=== PATIENT | male | born 1995 | race African-American/Black ===

== ENCOUNTER 2018-08-27 19:39 | Emergency (ER) | payer OTHER ==
[2018-08-27] MEDS ORDERED: BUFFERED LIDOCAINE 10 ML SYRINGE SUBQ STA (20:20)
[2018-08-27] MEDS ORDERED: SULFAM/TRIM 800/160 Prepack 2 PO ONE (21:03)
[2018-08-27] MEDS ORDERED: HYDROcod/ACET 5/325 Prepack 4 PO STA (21:04)
--- NOTE | 2018-08-27 21:06 | ED Physician Documentation ---
PD HPI SKIN - Stated complaint Stated Complaint: TAILBONE PX - Chief complaint Chief Complaint: Wound - History obtained from History obtained from: Patient, Family - History of Present Illness Timing - onset: How many weeks ago (1) Timing - duration: Weeks (1) Timing - details: Gradual onset, Still present Location: Other (end of the tailbone) Quality / character: Painful, Swelling Associated symptoms: No: Fever, N/V/D Contributing factors: Other (has pilonidal cyst) Similar symptoms before: Diagnosis (pilonidal cyst) Recently seen: Not recently seen - Additional information Additional information: 22-year-old male with a history of pilonidal cyst has developed symptoms with swelling and pain at the end of his tailbone that progressed over the past week. He has severe pain now and is uncomfortable even laying on his stomach. He has not had any drainage from the area, he has not had a fever or chills or myalgias. Review of Systems Constitutional: denies: Fever, Chills, Myalgias Respiratory: denies: Dyspnea GI: denies: Abdominal Pain, Nausea, Vomiting Skin: reports: Other (abscess to the tailbone) Musculoskeletal: denies: Neck pain Neurologic: denies: Generalized weakness, Focal weakness, Numbness PD PAST MEDICAL HISTORY - Past Medical History Past Medical History: No - Past Surgical History Past Surgical History: No - Present Medications Home Medications: Ambulatory Orders Medication Instructions Recorded Confirmed Bupropion HCl [Bupropion Xl] 1 tab PO DAILY 08/27/18 08/27/18 Sulfamethoxazole/Trimethoprim 1 each PO BID #14 tablet 08/27/18 [Sulfamethoxazole-Tmp Ds Tablet] - Allergies Allergies/Adverse Reactions: Allergies Allergy/AdvReac Type Severity Reaction Status Date / Time No Known Drug Allergies Allergy Verified 08/27/18 19:44 - Social History Does the pt smoke?: No Smoking Status: Never smoker Does the pt drink ETOH?: Yes Does the pt have substance abuse?: No - Immunizations Immunizations are current?: Yes - POLST Patient has POLST: No PD ED PE NORMAL - Vitals Vital signs reviewed: Yes (normal ) - General General: Alert and oriented X 3, No acute distress, Well developed/nourished - HEENT HEENT: Atraumatic, PERRL, EOMI - Respiratory Respiratory: No respiratory distress - Rectal Rectal: Other (At the upper end of the tailbone there is a swollen tender area without fluctuance. There is no surrounding erythema ) - Derm Derm: Normal color, Warm and dry, No rash - Extremities Extremities: No deformity, No tenderness to palpate, Normal ROM s pain, No edema, No calf tenderness / cord - Neuro Neuro: Alert and oriented X 3 Eye Opening: Spontaneous Motor: Obeys Commands Verbal: Oriented GCS Score: 15 - Psych Psych: Normal mood, Normal affect Results - Vitals Vitals: Vital Signs - 24 hr 08/27/18 19:42 Temperature 37.3 C Heart Rate 82 Respiratory 18 Rate Blood Pressure 128/71 O2 Saturation 99 Oxygen O2 Source Room air Procedures - Abscess I&D (location) tailbone Preparation: Confirmed with ultrasound, Chlorhexadine, Lidocaine 1% Incision: Incised with scalpel, Purulent drainage, Loculations broken, Irrigated, Packed, Culture obtained Other: Pt tolerated well, Dressing applied, Antibiotic prescribed PD MEDICAL DECISION MAKING - ED course Complexity details: considered differential, d/w patient, d/w family ED course: 22-year-old male with a history of pilonidal cyst has had a eruption is pile of his pilonidal cyst and now has a lot of pain and swelling associated with this the area is firm to touch and pus is detected with use of bedside ultrasound deep to the surface. The abscess is drained and cultures obtained and the abscess is packed with 7 1/2 cm of quarter inch packing. The procedure was painful to the patient and he had improvement in his pain at the conclusion of the procedure. Departure - Departure Disposition: 01 Home, Self Care Clinical Impression: Pilonidal cyst with abscess Condition: Stable Instructions: ED Cyst Pilonidal Infected IandD Follow-Up: [facility] [Provider Group] Prescriptions: Sulfamethoxazole/Trimethoprim [Sulfamethoxazole-Tmp Ds Tablet] 1 each PO BID #14 tablet Comments: Your packing will need to be removed over the next 2-5 days. Follow up with your primary in 2 days for exam. Forms: Activity restrictions
[2018-08-27 21:48] VITALS: BP 118/57
== END 2018-08-27 21:48 | disposition home or self-care (01) ==
LOC: ED 19:39
DX: L05.01 Pilonidal cyst with abscess (principal)
CPT/HCPCS: 10080; 87070; 87205; 99282; 99283

== ENCOUNTER 2019-01-24 09:25 | Emergency (ER) | payer OTHER ==
[2019-01-24 10:28] VITALS: BP 108/72
[2019-01-24] MEDS ORDERED: IBUPROFEN 800 MG TABLET PO STA (11:24)
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
== END 2019-01-24 11:36 | disposition home or self-care (01) ==
LOC: ED 09:25
DX: S39.012A Strain of muscle, fascia and tendon of lower back, initial encounter (principal); V89.2XXA Person injured in unspecified motor-vehicle accident, traffic, initial encounter
CPT/HCPCS: 99282; 99283

== ENCOUNTER 2019-03-21 08:32 | Emergency (ER) | payer OTHER ==
[2019-03-21 08:38] VITALS: BP 108/77
[2019-03-21] MEDS ORDERED: cephALEXin 250 MG CAPSULE PO STA (08:52)
[2019-03-21] MEDS ORDERED: SULFAMETH/TRIMETH DS 800/160 MG TABLET PO STA (08:52)
--- NOTE | 2019-03-21 08:57 | ED Physician Documentation ---
History of Present Illness - Stated complaint Stated Complaint: LOWER BACK PAIN - Chief complaint Chief Complaint: Wound - History obtained from History obtained from: Patient - History of Present Illness Timing: How many days ago (several) Pain level max: 4 Pain level now: 3 - Additonal information Additional information: 23-year-old male with a pilonidal cyst and abscess. This is spontaneously draining. This is the third time this is happened to him. Has never been referred to a surgeon. No fevers. Worse with palpation. Nothing makes it better. Review of Systems Constitutional: denies: Fever, Chills GI: denies: Vomiting Skin: denies: Rash Musculoskeletal: denies: Neck pain, Back pain Neurologic: denies: Headache PD PAST MEDICAL HISTORY - Past Medical History Cardiovascular: None Respiratory: None Endocrine/Autoimmune: None - Past Surgical History Past Surgical History: No - Present Medications Home Medications: Ambulatory Orders Medication Instructions Recorded Confirmed Cephalexin [Keflex] 500 mg PO Q6H #28 capsule 03/21/19 Sulfamethox/Trimeth 800/160 1 each PO BID #14 tablet 03/21/19 [Bactrim Ds 800/160] - Allergies Allergies/Adverse Reactions: Allergies Allergy/AdvReac Type Severity Reaction Status Date / Time No Known Drug Allergies Allergy Verified 03/21/19 08:37 - Social History Does the pt smoke?: No Smoking Status: Never smoker Does the pt drink ETOH?: Yes Does the pt have substance abuse?: No - Immunizations Immunizations are current?: Yes - POLST Patient has POLST: No PD ED PE NORMAL - Vitals Vital signs reviewed: Yes - General General: Alert and oriented X 3, No acute distress - Derm Derm: Warm and dry - Extremities Extremities: Other (Pilonidal cyst/abscess, 2 x 3 cm. Indurated but not fluctuant. There is 1/2 cm opening through which pus is draining. Draining freely.) - Neuro Neuro: Alert and oriented X 3 Results - Vitals Vitals: Vital Signs - 24 hr 03/21/19 08:36 Temperature 36.6 C Heart Rate 80 Respiratory 15 Rate Blood Pressure 108/77 O2 Saturation 99 Oxygen O2 Source Room air PD MEDICAL DECISION MAKING - ED course Complexity details: considered differential, d/w patient ED course: Spontaneously draining pilonidal cyst with abscess. Discussed further incision and drainage, but will trial warm baths and antibiotics. We will follow-up with the surgeon after this is healed for further care. Patient counseled regarding signs and symptoms for which I believe and urgent re-evaluation would be necessary. Patient with good understanding of and agreement to plan and is comfortable going home at this time This document was made in part using voice recognition software. While efforts are made to proofread this document, sound alike and grammatical errors may occur. Departure - Departure Disposition: Home, Self Care Clinical Impression: Pilonidal cyst with abscess Condition: Good Instructions: ED Cyst Pilonidal Infec Abx Only Follow-Up: Rene Kee MD [Provider Admit Priv/Credential] - Joseluis Arcos MD [Provider Admit Priv/Credential] - EVELIN BARGER MD [Primary Care Provider] - Within 3 Days Prescriptions: Cephalexin [Keflex] 500 mg PO Q6H #28 capsule Sulfamethox/Trimeth 800/160 [Bactrim Ds 800/160] 1 each PO BID #14 tablet Comments: Sit in warm water baths for 20 to 30 minutes 3-4 times a day this will help it to continue to drain. Take all antibiotics until gone. Return if you worsen. You should see a surgeon once the infection is cleared to remove the cyst sac and any fistula tracts
== END 2019-03-21 09:17 | disposition home or self-care (01) ==
LOC: ED 08:32
DX: L05.01 Pilonidal cyst with abscess (principal)
CPT/HCPCS: 99283; A9270

== ENCOUNTER 2019-06-17 07:21 | Day surgery (SDC) | payer OTHER ==
[2019-06-17] MEDS ORDERED: GLYCOPYRROLATE 1 MG/5 ML VIAL IVP ONE ×2 (07:22→10:12)
[2019-06-17] MEDS ORDERED: ONDANSETRON 4 MG/2 ML VIAL IVP ONE ×2 (07:22→10:12)
[2019-06-17] MEDS ORDERED: fentaNYL 250 MCG/5 ML VIAL IVP ONE ×2 (07:22→10:12)
[2019-06-17] MEDS ORDERED: ROCURONIUM 50 MG/5 ML VIAL IVP ONE ×2 (07:22→10:12)
[2019-06-17] MEDS ORDERED: MIDAZOLAM 2 MG/2 ML VIAL IVP ONE ×2 (07:22→10:12)
[2019-06-17] MEDS ORDERED: NEOSTIGMINE 1 MG/1 ML 10 ML MDV IVP ONE ×2 (07:22→10:12)
[2019-06-17] MEDS ORDERED: DEXAMETHASONE 4 MG/ML VIAL IVP ONE ×2 (07:22→10:12)
[2019-06-17] MEDS ORDERED: PROPOFOL 200 MG/20 ML VIAL IVP ONE ×2 (07:22→10:12)
[2019-06-17] MEDS ORDERED: LACTATED RINGERS 1,000 ML IV ONE ×2 (07:33→10:09)
[2019-06-17] MEDS ORDERED: CEFAZOLIN SODIUM IN 0.9 % NACL 2 GM/100 ML BAG IV ONE (07:34)
[2019-06-17] MEDS ORDERED: metroNIDAZOLE 500 MG/100 ML 500 MG/100 ML BAG ONE (07:34)
[2019-06-17] MEDS ORDERED: BUPIVACAINE 0.5%-EPI 1:200000 PF 30 ML VIAL ONE (07:42)
[2019-06-17] MEDS ORDERED: LIDOCAINE-MPF 1% 30 ML VIAL ONE (07:44)
--- NOTE | 2019-06-17 07:58 | ANESTHESIA ---
Pre-Anesthesia VS, & Labs - Diagnosis pilonidal cyst - Procedure pilonidal cystectomy Vital Signs: Temp Pulse Resp BP Pulse Ox 36.6 C 65 12 112/75 100 06/17/19 07:33 06/17/19 07:33 06/17/19 07:33 06/17/19 07:33 06/17/19 07:33 Height 5 ft 5 in Weight (kg) 62.9 kg Body Mass Index 22.4 Home Medications and Allergies Home Medications: Ambulatory Orders No Known Home Medications 06/10/19 No Known Home Medications 06/10/19 Allergies/Adverse Reactions: Allergies Allergy/AdvReac Type Severity Reaction Status Date / Time No Known Drug Allergies Allergy Verified 03/21/19 08:37 Anes History & Medical History - Medical History Cardiovascular: reports: None Pulmonary: reports: None Gastrointestinal: reports: None Urinary: reports: None Musculoskeletal: reports: None Endocrine/Autoimmune: reports: None Skin: reports: None Smoking Status: Never smoker
--- NOTE | 2019-06-17 08:09 | ANESTHESIA ---
Pre-Anesthesia VS, & Labs - Diagnosis pilonidal cyst - Procedure excision of pilonidal cyst Vital Signs: Temp Pulse Resp BP Pulse Ox 36.6 C 65 12 112/75 100 06/17/19 07:33 06/17/19 07:33 06/17/19 07:33 06/17/19 07:33 06/17/19 07:33 Height 5 ft 5 in Weight (kg) 62.9 kg Body Mass Index 22.4 - NPO >8 hours Last Fluid Intake: H2O sip at 645am Home Medications and Allergies Home Medications: Ambulatory Orders No Known Home Medications 06/10/19 No Known Home Medications 06/10/19 Allergies/Adverse Reactions: Allergies Allergy/AdvReac Type Severity Reaction Status Date / Time No Known Drug Allergies Allergy Verified 03/21/19 08:37 Anes History & Medical History - Anesthetic History Family history of Anesthesia Complications: Denies Family history of Malignant Hyperthermia: Denies - Medical History Cardiovascular: reports: None Pulmonary: reports: None Gastrointestinal: reports: None Urinary: reports: None Neuro: reports: None Musculoskeletal: reports: None Endocrine/Autoimmune: reports: None Blood Disorders: reports: None Skin: reports: None Smoking Status: Never smoker Psychosocial: reports: Alcohol (binge drinking on occassion) - Surgical History Eyes Ears Nose Throat (EENT): Other (wisdom teeth) Exam General: Alert, Oriented x3, Cooperative, No acute distress Dental: WNL Mouth Openin Fingerbreadth Neck Mobility: Normal Mallampati classification: I Thyromental Distance: greater than 6 cm Respiratory: Lungs clear, Normal breath sounds, No respiratory distress, No accessory muscle use Cardiovascular: Regular rate, Normal S1, Normal S2, No murmurs Mental/Cognitive Status: Alert/Oriented X3, Normal for patient Plan Anesthesia Type: General Consent for Procedure(s) Verified and Reviewed: Yes Code Status: Attempt Resuscitation ASA classification: 1-Healthy patient Is this case an emergency?: No
[2019-06-17] MEDS ORDERED: LIDOCAINE 1%-EPI 1:100000 30 ML MDV SUBQ ONE (09:20)
[2019-06-17] MEDS ORDERED: BUPIVACAINE 0.5% PF 30 ML VIAL INFIL ONE ×2 (09:20)
[2019-06-17] MEDS ORDERED: HYDROmorphone 0.5 MG/0.5 ML SYRINGE IVP PRN (10:05)
[2019-06-17] MEDS ORDERED: oxyCODONE 5 MG TABLET PO PRN (10:05)
[2019-06-17] MEDS ORDERED: ONDANSETRON 4 MG/2 ML VIAL IVP PRN (10:05)
[2019-06-17] MEDS ORDERED: KETOROLAC 30 MG/ML VIAL IVP ONE (10:12)
--- NOTE | 2019-06-17 10:41 | OPERATIVE REPORT ---
Operative Report - General Procedure Date: 06/17/19 Planned Procedure: Excision of Pilonidal Cyst Pre-Op Diagnosis: Pilonidal cyst Procedure Performed: Pilonidal Cystectomy Post Op Diagnosis: Same - Procedure Note Primary Surgeon: Tariq Anesthesia Provider: MICHELLE Cardona Anesthesia Technique: General ET tube, Local Estimated Blood Loss (mL): 5 Indications: Repeatedly infected and symptomatic pilonidal cyst Findings: 10 x 1 cm area of multiple punctae and cystic lesions Complications: None apparent - Other Other Information/Narrative: After obtaining informed consent, the patient is brought to the operating room and placed in the supine position. Following successful induction of general endotracheal anesthesia, the patient was rolled to the prone position with appropriate padding of all bony prominences and placement of appropriate monitors. The operative site was prepped and draped in the standard surgical fashion. A time out was held per SCOAP protocol. Following infiltration with local anesthesia to create a field block, a 10 x 1 cm elliptical incision was fashioned to include the entire affected area and all the punctae. This was carried through the subcutaneous tissue to the body wall. The entire ellipse was then removed and passed from the table. The wound was checked for hemostasis and irrigated with warm saline solution. It was then closed in 3 layers with Vicryl and Nylon suture. A dry dressing was applied. All sponge, needle, and instrument counts were correct at the conclusion of the case. The patient was allowed to awaken from anesthesia without difficulty and taken to the post anesthesia care unit in good condition.
[2019-06-17 11:32] VITALS: BP 111/61
== END 2019-06-17 07:22 | disposition home or self-care (01) ==
LOC: SDS 07:21
PROVIDERS: ATTEND Surgery
PROC: 0JB90ZZ Excision of Buttock Subcutaneous Tissue and Fascia, Open Approach (ICD-10-PCS; principal; 2019-06-17 08:30)
DX: L05.91 Pilonidal cyst without abscess (principal)
CPT/HCPCS: 11770; J0690; J3010; J7120

== ENCOUNTER 2019-09-22 15:53 | Outpatient (CLI) | payer OTHER | END 2019-09-22 15:54 | disposition critical access hospital (66) | LOC: EMS 15:53 | PROVIDERS: ATTEND Surgery | DX: S01.81XA Laceration without foreign body of other part of head, initial encounter (principal); Y04.8XXA Assault by other bodily force, initial encounter | CPT/HCPCS: A0425; A0429 ==

== ENCOUNTER 2019-09-22 16:22 | Emergency (ER) | payer OTHER ==
[2019-09-22 16:30] VITALS: BP 129/76
[2019-09-22] MEDS ORDERED: LIDOCAINE-EPINEPH-TETRACAINE 3 ML SYRINGE TOP STA (16:32)
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
== END 2019-09-22 17:35 | disposition home or self-care (01) ==
LOC: EDUNIT# → ED 16:22
DX: S01.01XA Laceration without foreign body of scalp, initial encounter (principal); S09.90XA Unspecified injury of head, initial encounter; Y08.89XA Assault by other specified means, initial encounter
CPT/HCPCS: 12001; 70450; 72125; 99284

== ENCOUNTER 2019-09-22 17:50 | Emergency (ER) | payer OTHER ==
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
[2019-09-22 18:04] VITALS: BP 132/86
== END 2019-09-22 18:00 | disposition home or self-care (01) ==
LOC: ED 17:50
DX: S01.01XA Laceration without foreign body of scalp, initial encounter (principal); S09.90XA Unspecified injury of head, initial encounter; X58.XXXA Exposure to other specified factors, initial encounter